=== PATIENT | male | born 1935 | race Caucasian/White ===

== ENCOUNTER 2016-09-09 17:54 | Emergency (ER) | payer MEDICARE, BC ==
[2016-09-09] MEDS ORDERED: SODIUM CHLORIDE 0.9% 500 ML IV ONE (19:34)
[2016-09-09] MEDS ORDERED: NITROGLYCERIN SL 0.4 MG TAB SL ONE (21:25)
[2016-09-09] MEDS ORDERED: NITROGLYCERIN/D5W 250 ML IV ONE (21:26)
== END 2016-09-09 22:45 | disposition other institution (70) ==
LOC: ER 17:54
CPT/HCPCS: 36415 ×2; 36430 ×2; 71010 ×2; 80053 ×2; 82274 ×2; 82550 ×2; 82947 ×2; 83735 ×2; 83880 ×2; 84484 ×2; 85014 ×2; 85018 ×2; 85025 ×2; 85610 ×2; 85730 ×2; 86850 ×2; 86900 ×2; 86901 ×2; 86923 ×2; 93005 ×2; 99291; J7040; P9016